=== PATIENT | male | born 1960 | race Caucasian/White ===

== ENCOUNTER → 2016-09-19 | Outpatient (CLI) | payer BC | END | disposition home or self-care (01) | LOC: GMAM 10:47 | PROVIDERS: ATTEND Family Medicine | DX: R61 Generalized hyperhidrosis (principal); R50.9 Fever, unspecified; E29.1 Testicular hypofunction; E55.9 Vitamin D deficiency, unspecified ==

== ENCOUNTER → 2016-09-19 | Outpatient (CLI) | payer BC ==
--- NOTE | 2016-09-20 13:01 | US ---
EXAM DESCRIPTION: Soft Tissue,Extremity CLINICAL HISTORY: 55 years Male, LIMB MUSCLE MASS COMPARISON: None. FINDINGS: Graphic evaluation of the area of clinical concern involving the left upper thigh medially in an area of palpable abnormality suggest a possible subcutaneous isoechoic elongated nodule approximately 4.5 x 3.2 x 0.8 cm in size. This lies superficial to the fascial plane in could possibly represent a lipoma. The underlying muscular structures are normal in appearance with a slightly heterogeneous architecture and normal striation in the longitudinal plane. No cystic lesions and no identifiable solid mass is deep to the fascial plane within the muscle is evident. IMPRESSION: Questionable subtle subcutaneous lipoma superficial to the fascial planes in the area of palpable concern. If there remains strong clinical concern for an intramuscular abnormality, MRI without and with contrast enhancement should be considered. Electronically signed by: Angelo Lara MD 09/20/2016 1:01 PM CDT
== END | disposition home or self-care (01) ==
LOC: US 15:29
PROVIDERS: ATTEND Family Medicine
DX: R29.898 Other symptoms and signs involving the musculoskeletal system (principal)

== ENCOUNTER 2016-10-19 06:00 | Day surgery (SDC) | payer BC ==
[2016-10-19] MEDS ORDERED: ceFAZolin SODIUM 1 GM VIAL ONE (06:11)
[2016-10-19] MEDS ORDERED: LACTATED RINGERS 1,000 ML ONE (06:11)
[2016-10-19] MEDS ORDERED: SODIUM CHL 0.9% 100ML MINI-BAG 100 ML IVPB ONE (06:11)
[2016-10-19] MEDS ORDERED: LIDOCAINE 1% 50 ML VIAL INJ ONE (08:00)
[2016-10-19] MEDS ORDERED: SODIUM BICARBONATE VIAL 50 MEQ/50 ML VIAL ONE (08:01)
[2016-10-19 10:06] VITALS: O2SAT 97
[2016-10-19 10:31] VITALS: BP 125/84; TEMP 97
--- NOTE | 2016-10-19 11:24 | OP ---
DATE OF PROCEDURE: 10/19/16 PREOPERATIVE DIAGNOSIS: 1. Tender subcutaneous mass, left proximal medial thigh. POSTOPERATIVE DIAGNOSIS: 1. Tender subcutaneous mass, left proximal medial thigh. PROCEDURE: 1. Excision of subcutaneous mass, left thigh. SURGEON: Saman Corrigan MD PHARMACEUTICAL OPERATOR: None. ANESTHESIA: Local infiltration of 1% lidocaine with bicarb. INDICATION: The patient is a 55-year-old male who has developed a mass in his left upper thigh. It is mildly uncomfortable due to its proximal nature with the other thigh. There is no overlying erythema. It is mobile. He was brought to the Surgical Suite today for excision after the risks, benefits and alternatives to the procedure were discussed and accepted. FINDINGS: The mass was identified in the subcutaneous tissue and removed in two significant pieces. PROCEDURE: After the patient was brought to the Surgical Suite and placed in the supine position, the left leg was butterflied and the proximal thigh was prepped and draped in the usual manner. When this was done, a time-out was taken. A linear incision transversely was then made over the mass, first with the marking pen and then with infiltration of anesthesia. The skin was incised with a knife and electrocautery was used to dissect down into the subcutaneous tissue. The mass was identified. Using blunt dissection and electrocautery, it was removed in two major pieces and one small piece. The wound was irrigated with lidocaine. Hemostasis was obtained with electrocautery. When hemostasis was noted to be adequate, it was closed in two layers with the subcutaneous tissues reapproximated with interrupted 3-0 Vicryl sutures. The skin edges were approximated with 4-0 Prolene vertical mattress sutures. A sterile pressure dressing was applied. The patient tolerated the procedure well. Estimated blood loss was 25 mL or less. All sponge, needle and instrument counts were correct. #[id number] [facility]
== END 2016-10-19 09:45 | disposition home or self-care (01) ==
LOC: AMB 06:00
PROVIDERS: ATTEND Surgery
DX: D17.24 Benign lipomatous neoplasm of skin and subcutaneous tissue of left leg (principal); I10 Essential (primary) hypertension; E78.5 Hyperlipidemia, unspecified; G47.30 Sleep apnea, unspecified; J45.909 Unspecified asthma, uncomplicated; Z85.72 Personal history of non-Hodgkin lymphomas; Z79.899 Other long term (current) drug therapy
CPT/HCPCS: 27337; 36415; 81001; 85025; J0690; J7050; J7120

== ENCOUNTER → 2016-10-22 | Outpatient (CLI) | payer BC ==
--- NOTE | 2016-10-22 09:41 | US ---
EXAM DESCRIPTION: Carotid Duplex CLINICAL HISTORY: ABNORMAL SMARTBEAT SCREEN COMPARISON: None Available. TECHNIQUE: Carotid Doppler ultrasound grayscale, color Doppler, and spectral pulse Doppler evaluation. FINDINGS: On the right very minimal intimal thickening in the common carotid artery is present with a widely patent internal and external carotid origin. Very little plaque formation is noted. Peak CCA velocities are 93/32 cm/s and peak ICA velocities are 58/28 cm/s with an ICA/CCA ratio of 0.6. Antegrade flow in the external carotid and vertebral is present. On the left, mild intimal thickening in the widely patent common carotid artery is present with widely patent bifurcation. Peak left CCA velocities are 114/34 cm/s and peak ICA velocities are 57/26 cm/s with an ICA/CCA ratio of 0.5. Antegrade flow in the external carotid and vertebral is present. IMPRESSION: Essentially normal examination with a minimal intimal thickening noted with no hemodynamically significant stenosis of either carotid system evident. Antegrade flow in each vertebral artery. Electronically signed by: Angelo Lara MD 10/22/2016 9:40 AM CDT
--- NOTE | 2016-10-22 13:49 | US ---
EXAM DESCRIPTION: Soft Tissue,Head/Neck CLINICAL HISTORY: ABNORMAL SMARTBEAT SCREEN questionable abnormality of the right internal jugular vein COMPARISON: None Available. TECHNIQUE: Grayscale and color Doppler imaging of the right neck with attention to the internal jugular vein. FINDINGS: Sonographic evaluation of the inferior right neck with attention to the jugular vein near its junction with the subclavian vein in the supraclavicular region was performed. Prominent vascular structure presumably representing the confluence and/or subclavian vein is present. There is echogenic material within the sonolucent structure that incompletely opacifies with color Doppler imaging and presumably represents a valve within the jugular vein but the possibility of partial occlusion cannot be completely excluded. Correlation with any history of previous instrumentation of the right internal jugular vein is recommended. An enhanced CT examination to include the venous phase of imaging to more fully evaluate the wall and lumen of the right internal jugular vein should be considered. IMPRESSION: Abnormal examination with an abnormal appearance of the jugular vein just above the clavicle in the right lower neck suspicious for a valve and/or an element of thrombus with incomplete opacification with Doppler flow noted. Correlation with any history of instrumentation of the jugular vein or trauma to this region is recommended consider contrast-enhanced CT of the neck to include and early venous phase of imaging to evaluate the opacified a right internal jugular vein. Electronically signed by: Angelo Lara MD 10/22/2016 1:48 PM CDT
== END | disposition home or self-care (01) ==
LOC: US 08:31
PROVIDERS: ATTEND Family Medicine
DX: R90.89 Other abnormal findings on diagnostic imaging of central nervous system (principal)

== ENCOUNTER → 2017-01-15 | Outpatient (CLI) | payer BC ==
--- NOTE | 2017-01-15 16:52 | CT ---
EXAM DESCRIPTION: CTA Neck CLINICAL HISTORY: 56 years, Male, INTERNAL JUGULAR VEIN STENOSIS COMPARISON: Carotid ultrasonography and soft tissue ultrasonography of the neck dated October 22, 2016 TECHNIQUE: Rapid bolus administration of nonionicIV contrast was performed with thin-section axial scanning of the neck performed in a dynamic fashion. Arterial phase and early venous phase to evaluate the right internal jugular vein was performed Reconstructed multiplanar and three dimensional MIP and VRT images created on a separate dedicated workstation were reviewed along with the source axial images and stored in the patient's medical record. This exam was performed according to our departmental dose-optimization program, which includes automated exposure control, adjustment of the mA and/or kV according to patient size and/or use of iterative reconstruction technique. FINDINGS: CTA of the neck was performed with an arterial phase as well as the venous phase to evaluate the vasculature of the neck including the right internal jugular vein in the supraclavicular region near its junction with the subclavian vein. A left internal jugular vein is modestly larger than the right. Good vascular enhancement of the jugular vein, particularly at the base of the neck is noted with the vena cava becoming smaller near the skull base but patent to the intracranial level. The primary intracranial drainage is via the right internal jugular vein. The arterial evaluation demonstrates no abnormality of the aortic arch or great vessels and normal filling of each internal carotid artery with normal bifurcation with intracranial filling to the internal carotid bifurcation bilaterally. No significant plaque or stenosis is seen. Thoracic inlet or superior mediastinal or base of neck mass is not apparent. Scattered small normal size lymph nodes on each side of the neck is noted. The region of the larynx and prevertebral soft tissues are unremarkable. IMPRESSION: 1. Patent but smaller right internal jugular vein compared to the left with no evidence of filling defect stenosis or intradural without identified within the lower neck right internal jugular vein as suspected sonographically. At the level of the skull base the internal jugular vein on the right is relatively diminutive but is patent to the intracranial level with a primary intracranial venous drainage via the larger left internal jugular vein 2. Widely patent carotid arteries bilaterally and carotid bifurcations. 3. Incidental note of dominant larger vertebral artery but patent smaller right vertebral artery to the intracranial level. Electronically signed by: Angelo Lara MD 01/15/2017 4:50 PM CDT
== END | disposition home or self-care (01) ==
LOC: CT 09:03
PROVIDERS: ATTEND Internal Medicine Interventional Cardiology
DX: I87.8 Other specified disorders of veins (principal)

== ENCOUNTER → 2017-04-18 | Outpatient (CLI) | payer BC ==
--- NOTE | 2017-04-18 18:24 | RAD ---
EXAM DESCRIPTION: Ankle,Left 3 Views CLINICAL HISTORY: PAIN IN ANKLE COMPARISON: 11/08/2014 FINDINGS: 3 views were submitted. No fracture or dislocation is identified. 3 mm bone fragment projects distal to the distal fibula. This could be remnant of the prior fracture of the fibula previously seen. Bone marrow attenuation is unremarkable. No radiopaque foreign body is identified. IMPRESSION: No acute fracture or dislocation. Electronically signed by: Roger Ho 04/18/2017 6:22 PM [facility]
== END | disposition home or self-care (01) ==
LOC: RAD 17:40
PROVIDERS: ATTEND Nurse Practitioner Family
DX: M25.579 Pain in unspecified ankle and joints of unspecified foot (principal)

== ENCOUNTER → 2017-07-17 | Outpatient (CLI) | payer BC | LOC: GMAM 11:17 | PROVIDERS: ATTEND Family Medicine | DX: R94.5 Abnormal results of liver function studies (principal); E29.1 Testicular hypofunction ==

== ENCOUNTER → 2018-02-14 | Outpatient (CLI) | payer BC | LOC: GMAM 10:34 | PROVIDERS: ATTEND Family Medicine | DX: N45.1 Epididymitis (principal) ==

== ENCOUNTER → 2018-02-21 | Outpatient (CLI) | payer BC | LOC: GMAM 10:53 | PROVIDERS: ATTEND Family Medicine | DX: E55.9 Vitamin D deficiency, unspecified (principal); Z12.5 Encounter for screening for malignant neoplasm of prostate ==

== ENCOUNTER → 2018-12-10 | Outpatient (CLI) | payer BC | LOC: GMAM 12:03 | PROVIDERS: ATTEND Family Medicine | DX: E55.9 Vitamin D deficiency, unspecified (principal); I10 Essential (primary) hypertension ==

== ENCOUNTER → 2019-09-18 | Outpatient (CLI) | payer BC ==
--- NOTE | 2019-09-18 13:29 | CT ---
EXAM DESCRIPTION: Chest w/Contrast CLINICAL HISTORY: 58 years, Male, THORACIC AORTIC ANEURYSM W/O RUPTURE COMPARISON: None TECHNIQUE: Thin-section axial CT images are obtained after administration of intravenous contrast media. Reconstructed MPR images are created and reviewed as well. FINDINGS: Mild aneurysmal dilation of the proximal ascending thoracic aorta measuring up to 4.8 x 4.6 cm (axial image 33). The aortic arch and descending thoracic aorta is normal in caliber. Normal caliber aortic valves. No significant arthrosclerosis. No focal aortic wall defect or dissection. The heart is normal in size. LAD mild atherosclerosis in addition to mild atherosclerosis of the circumflex and posterior descending coronary arteries. No pericardial effusion. The lungs are clear. No focal consolidation, pneumothorax, or pleural effusion. No pulmonary mass. No mediastinal or hilar adenopathy. No axillary lymphadenopathy. No acute osseous abnormality. Partially visualized abdomen demonstrate prior cholecystectomy IMPRESSION: 1. Proximal ascending thoracic aorta mild aneurysmal dilatation measuring up to 4.8 cm. No significant aortic arthrosclerosis, focal defect, or dissection. 2. Mild coronary arterial atherosclerosis. This exam was performed according to our departmental dose-optimization program, which includes automated exposure control, adjustment of the mA and/or kV according to patient size and/or use of iterative reconstruction technique. Electronically signed by: Luke Turner DO 09/18/2019 1:27 PM CDT
== END ==
LOC: LAB.O 10:39
PROVIDERS: ATTEND Family Medicine
DX: I71.2 Thoracic aortic aneurysm, without rupture (principal); I25.10 Atherosclerotic heart disease of native coronary artery without angina pectoris

== ENCOUNTER → 2019-09-22 | Outpatient (CLI) | payer BC | LOC: GMAM 09:54 | PROVIDERS: ATTEND Family Medicine | DX: I25.10 Atherosclerotic heart disease of native coronary artery without angina pectoris (principal) ==

== ENCOUNTER 2020-01-13 10:24 | Emergency (ER) | payer BC ==
[2020-01-13] MEDS ORDERED: SODIUM CHLORIDE 0.9% (FLUSH) 10 ML SYG IV PRN (10:39)
--- NOTE | 2020-01-13 10:44 | ED.PDOC ---
History of Present Illness - General Stated Complaint: Shortness of Breath Time Seen by Provider: 01/13/20 10:29 Source: patient, family Exam Limitations: no limitations Additional Information: The patient is a 59 year old male who recently underwent repair of thoracic aneurysm two weeks ago, presents with shortness of breath. States that he had been doing his exercises and walking, yesterday afternoon he noticed that he had become more fatigued than usual. Today walking around his house he became winded and checked his pulse oximetry and was found to have hypoxia to the 80s and tachycardia to the 120s. He is only symptomatic with exertion. no cough or fever. No wound redness, worsening pain, or drainage. He has had postoperative pain but does not feel like this is worse or different today. no unilateral leg swelling or pain. No other complaints at this time. - History of Present Illness Allergies/Adverse Reactions: Allergies NO KNOWN ALLERGY Allergy (Verified 01/13/20 10:41) Home Medications: Ambulatory Orders Cetirizine HCl [ZyrTEC] 10 mg PO DAILY 10/15/16 Fluticasone Prop 0.05% Nasal [Flonase Nasal [place]] 1 spray BNAS DAILY 10/15/16 Review of Systems - Review of Systems Constitutional: Denies: chills, fever EENTM: States: no symptoms reported Respiratory: States: short of breath. Denies: cough, orthopnea, wheezing Cardiology: States: chest pain - not changed from baseline after surgery Gastrointestinal/Abdominal: States: no symptoms reported. Denies: nausea, vomiting Genitourinary: States: no symptoms reported Musculoskeletal: States: no symptoms reported Skin: States: no symptoms reported Neurological: States: no symptoms reported Endocrine: States: no symptoms reported Hematologic/Lymphatic: States: no symptoms reported All other Systems: Reviewed and Negative Past Medical History (General) - Patient Medical History Hx Asthma: Yes Hx Cardiac Disorders: Yes - AAA repair 2 wks ago today Hx Congestive Heart Failure: No Hx Diabetes: No Hx MRSA: No - Social History Hx Alcohol Use: No - Activities of Daily Living Hospice Agency (if applicable):: None - Female History Patient is a Female of Child Bearing Age (10 -59 yrs old): No Family Medical History - Family History Mother Family History: Unknown Physical Exam - Physical Exam General Appearance: Comfortable, No apparent distress Neck: normal inspection - no JVD Respiratory: lungs clear, no respiratory distress, no accessory muscle use, other - moderate diffuse chest wall tenderness Cardiovascular/Chest: regular rate, rhythm, no edema, no JVD, no murmur, other - median sternotomy clean, dry and intact Gastrointestinal/Abdominal: non tender, soft Neurologic: no motor/sensory deficits, alert, normal mood/affect, oriented x 3 Skin Exam: normal color, warm/dry Progress - Progress Progress: 01/13/20 10:46 Patient presents with postoperative shortness of breath, hypoxia, and tachycardia concerning for pulmonary embolism, infection, CHF, other postoperati ve complication. EKG shows NSR no STEMI. Will check labs, imaging, CTA and reassess. he does not have any symptoms while at rest although noted to have room air saturation of 87%. 01/13/20 12:31 Patient noted to have bilateral pulmonary emboli. Discussed with Dr. Cardoso (CVTS) agrees with heparin drip. Will transfer to [facility]. 01/13/20 13:[address] Brown at [facility] who accepts for transfer - EKG/XRAY/CT EKG: Sinus, no ST T wave changes Comments: NSR at rate 94, normal axis, normal intervals, no STEMI Departure - Departure Clinical Impression: Pulmonary embolism Qualifiers: Pulmonary embolism type: multiple subsegmental (without acute cor pulmonale) Qualified Code(s): I26.94 - Multiple subsegmental pulmonary emboli without acute cor pulmonale Time of Disposition: 13:45 Disposition: Transfer to Hospital Condition: Fair Departure Forms: ED Discharge - Pt. Copy, Patient Portal Self Enrollment Referrals: Angeol Wallace MD [Primary Care Provider] - 1-2 Weeks Home Medications: Ambulatory Orders Cetirizine HCl [ZyrTEC] 10 mg PO DAILY 10/15/16 Fluticasone Prop 0.05% Nasal [Flonase Nasal [place]] 1 spray BNAS DAILY 10/15/16 Comments: Bob Ortega MD Emergency Medicine Physician Number [id number]
--- NOTE | 2020-01-13 11:23 | RAD ---
EXAM DESCRIPTION: Chest,1 View: CR/DR/XR. CLINICAL HISTORY: 59 years Male CP, SOB. Postop thoracic aneurysm repair COMPARISON: CTA of the chest on the same visit. Chest x-ray February 2018. TECHNIQUE: ONE VIEW PORTABLE. AP 1053 hours, upright position. FINDINGS: sternotomy wires are new since the prior study. Cardiomediastinal silhouette and size of the cardiopulmonary vascular structures is unremarkable, including left ventricular enlargement, stable since the prior study. No acute infiltrate. No pleural effusion or pneumothorax. IMPRESSION: Cardiothoracic surgery in the mediastinal region since the prior study. Cardiomediastinal silhouette is otherwise unchanged since the prior study. No acute infiltrate or acute pleural findings. Electronically signed by: Roger Barker MD 01/13/2020 11:21 AM CDT
--- NOTE | 2020-01-13 12:16 | CT ---
EXAM DESCRIPTION: CTA Chest: Computed Tomography. CLINICAL HISTORY: CP, SOB, recent aortic surgery 2 weeks ago., concern for PE COMPARISON: Chest x-ray on this visit. CTA neck January 2017. CT chest with contrast September 2019. TECHNIQUE: Spiral-axial scans at 2.5 x 2.5 mm intervals through the pulmonary arteries and chest after bolus infusion of IV contrast. Lung algorithm 1.25-mm axial reconstructions. Coronal and sagittal 2.0 Mm reconstructions. 10.0 mm PE oblique 3-D reformatted images. No adverse reactions. Total Exam DLP: 990 mGy-cm. This exam was performed according to our departmental CT dose-optimization program which includes automated exposure control, adjustment of the mA and/or kV according to patient size and/or use of iterative reconstruction technique; to reduce radiation dose to as low as reasonably achievable (ALARA). FINDINGS: Pulmonary arteries: Optimal contrast enhancement of the pulmonary artery system. Multiple bilateral filling defects representing thrombi in the left upper lobe and lower lobe pulmonary artery branches and segmental and subsegmental branches. Multiple bilateral filling defects representing thrombi in the right middle lobe and lower lobe, lobar pulmonary arteries, and distal segmental and subsegmental branches. No thrombi in the right upper lobe lobar pulmonary artery, segmental, or subsegmental branches. Heart and other great vessels: Mild pericardial effusion. An electrode extends from the mid anterior pericardium inferiorly posterior to the sternum and terminates in the midline anterior mid abdominal wall. Minimal edema in the periaortic tissue of the aortic arch. Contrast seen in the proximal coronary arteries in the ascending aorta. Coronary artery calcifications. No contrast leakage from the aortic arch, proximal brachiocephalic vessels, or the pulmonary veins. Lungs and airways: Pleural parenchymal scarring in the left. Minimal pleural parenchymal scarring right base. No abnormal nodules and no masses. No acute or focal infiltrates. Pleura: Scattered bilateral thickening. Minimal effusion in the inferior left. Mediastinum and pati: scatter artifact from dense PA contrast. Small bilateral upper mediastinal lymph nodes. No dominant soft tissue masses. Soft tissue neck, chest wall, and axillae: Normal size axillary nodes. No soft tissue edema anterior chest wall. Upper abdomen: No free air or free fluid. Included organs within the normal density and enhancement and size. Osseous structures: Sagittal midline sternotomy with slight offset and sternotomy wires. Minimal spondylosis upper and mid disc space levels. Minimal right convex curvature of the spine. Minimal arthrosis bilateral shoulders. IMPRESSION: 1. Bilateral acute pulmonary embolism involving all lobar segmental and subsegmental pulmonary artery branches on the left and the middle lobar in the lower lobar pulmonary arteries and segmental and subsegmental branches on the right. No thrombi in the right upper lobar pulmonary artery or branches. 2. Mild pericardial effusion. Minimal fluid also around the aorta at the site of recent surgery. No contrast extravasation. 3. Small left pleural effusion. CRITICAL COMMUNICATION: The critical value was communicated directly by Dr. Barker via phone call, with Dr Ortega of EM Department, at approximately 1155 hours, on January 13, 2020. Electronically signed by: Roger Barker MD 01/13/2020 12:14 PM CDT
[2020-01-13] MEDS ORDERED: HEPARIN PREMIX 25,000 UNITS in PREMIX BAG 1 BAG IVS SCH (12:45)
[2020-01-13] MEDS ORDERED: HYDROcodone 5MG/APAP 325MG 1 EA TAB PO ONE (12:55)
[2020-01-13 13:32] VITALS: BP 116/75; TEMP 96.5; O2SAT 96
== END 2020-01-13 13:32 | disposition short-term general hospital (02) ==
LOC: ER 10:24
DX: I26.94 Multiple subsegmental thrombotic pulmonary emboli without acute cor pulmonale (principal); R09.02 Hypoxemia; R00.0 Tachycardia, unspecified; R07.89 Other chest pain; J45.909 Unspecified asthma, uncomplicated; Z98.890 Other specified postprocedural states
CPT/HCPCS: 36415; 71045; 71275; 80048; 82550; 82553; 84484; 85025; 85379; 85610; 85730; 93005; 94760; J1644

== ENCOUNTER → 2020-02-09 | Outpatient (CLI) | payer BC | LOC: GMAM 10:55 | PROVIDERS: ATTEND Family Medicine | DX: Z12.5 Encounter for screening for malignant neoplasm of prostate (principal); E29.1 Testicular hypofunction; E55.9 Vitamin D deficiency, unspecified ==